=== PATIENT | male | born 1955 | race African-American/Black ===

== ENCOUNTER 2024-06-02 09:57 | Outpatient (CLI) | payer MEDICARE, SELFPAY ==
--- NOTE | ~2024-06-02 | MR_ITS ---
MRI of the right elbow Clinical history: Pain, biceps strain TECHNIQUE: Proton-density and proton-density fat-sat imaging was performed in the axial, coronal, and sagittal planes. FINDINGS: Ulnar collateral ligament is intact. Radial collateral ligament and the lateral ulnar colla teral ligament are intact. There is mild tendinosis at the common Bone marrow signals are unremarkable. No significant articular abnormality of the elbow. No joint eff usion. Extensor tendon origin. There is minimal tendinosis of the common flexor tendon origin. There is complete rupture of the distal biceps tendon, which is retracted approximately 4 cm from the radial tuberosity insertion. Brachialis and triceps tendons are intact. There is soft tissue fluid a bout the retracted biceps tendon. IMPRESSION: Complete rupture of the distal biceps tendon with 4 cm retraction, as detailed above. Mild tendinosis of the common extensor and common flexor tendon origins, as above. Reviewed, dictated and finalized at [facility]. IMPRESSION: Complete rupture of the distal biceps tendon with 4 cm retraction, as detailed above. Mild tendinosis of the common extensor and common flexor tendon origins, as abo ve.
== END 2024-06-02 09:58 | disposition home or self-care (01) ==
LOC: GOSHIMG 09:58
PROVIDERS: PCP Family Medicine Sports Medicine; Visit Provider Family Medicine Sports Medicine
DX: S46.211A Strain of muscle, fascia and tendon of other parts of biceps, right arm, initial encounter (principal); M67.823 Other specified disorders of tendon, right elbow; X58.XXXA Exposure to other specified factors, initial encounter
CPT/HCPCS: 73221

== ENCOUNTER 2024-06-02 09:59 | Outpatient (CLI) | payer MEDICARE, SELFPAY ==
--- NOTE | ~2024-06-02 | US_ITS ---
EXAMINATION: US aorta [facility] DATE: 06/02/2024 11:12 INDICATION: Abdominal aortic aneurysm screening TECHNIQUE: Grayscale, color Doppler, and pulsed Doppler images of the aorta and common iliac arteries were obtained. COMPARISON: None. FINDINGS: The proximal aorta measures 2.6 cm AP. The mid aorta measures 2.4 cm. The distal aorta measures 2.7 c m. The right common iliac artery measures 1.3 cm. The left common iliac artery measures 1.6 cm. IMPRESSION: 1. Normal caliber abdominal aorta. Reviewed, dictated and finalized at location A.
== END 2024-06-02 10:00 | disposition home or self-care (01) ==
LOC: GOSHIMG 10:00
PROVIDERS: PCP Family Medicine; Visit Provider Family Medicine
DX: Z13.6 Encounter for screening for cardiovascular disorders (principal)
CPT/HCPCS: 76706

== ENCOUNTER 2025-08-24 07:30 | Outpatient (CLI) | payer MEDICARE, SELFPAY ==
--- OUTSIDE RECORDS SUMMARY | 2017-01-10 03:00 | XMS_ITS | Continuity of Care Document ---
Author Organization [facility] Address [address] [place] [address] Phone Care Team Providers Care Ore Washer Name Role Phone Cristy Morton MD Unavailable Unavai lable Allergies, Adverse Reactions, Alerts Substance Reaction Status Criticality No Known Allergies Active No Inform ation Advance Directives Directive Yes / No Effective Date File Name No Information Encounters Encounter Description Practice Location Reason(s) For Visit Diagnoses Date Provider Providers Copied on Encounter [facility], [address], [place], [place], [id number], tel:[phone] [facility] No Information 7 Alejandro Muniz. [address] [place] [address], [id number] . tel:[phone] Referring Provider: Cristy Lucio, [address] [place] [address], [id number] . tel:[phone] [facility], [address], [place], [place], [id number], tel:[phone] [facility] Elevated BP without diagnosis of hypertensionBenign non-nodular prostatic hyperplasia with lower urinary tract symptomsRoutine medical examPolyp of colon, unspecified part of colon, unspecified typeCarpal tunnel syndrome of right wristPrediabetesPre diabetes 201 7 Alejandro Muniz. [address] [place] [address], [place], [place], [id number] . tel:[phone] Referring Provider: Cristy Lucio [address] [place] [address], [id number] . tel:[phone] Family History Family Member Type Diagnosis Age At Onset Sister Problem (finding) stroke Father Problem (finding) malignant neop lasm of lung (Cause Of ) 87 Brother Problem (finding) Cancer, skin Mother Problem (finding) glaucoma Mother Problem (finding) hypertension Mother Problem (finding) osteoarthritis Payers Payer name Insurance type Covered alliance party ID Authoriza tisurya(s) [employer] [id number] Social History Type Description Quantity Date Captured Comments Alcohol Use Details Unknown Caffeine Use Details Unknown Tobacco Use Status No Information Smoking Status No Information Sex Male Vital Signs Date / Time: Height Weight BMI Pulse Rate Blood Pressure Temperature Respiratory Rate Body Surface Area Head Circumference Head Circ. Percentile Wt./Damien. Percentile BMI percentile Pulse Ox Inhaled Ox 8:49 AM 150/74 mm[Hg] 8:58 AM 132/78 mm[Hg] Chief Complaint And Reason For Visit No Information Reason For Referral Reason For Referral No Information History Of Present Illness Encounter Date Complaint History Of Prese nt Illness No Information Functional Status Date Functional Assessmen t No Information Instructions Date Instruction Additional Infor mation No Information Assessments Type Assessment Date No Information Patient Care Teams Name Effective Dates (start - stop) Status Members No Information
--- NOTE | ~2025-08-24 | PE_ITS ---
EXAMINATION: PET_PETPSMAST_PT DATE: 08/24/2025 09:47 INDICATION: Malignant neoplasm of prostate. TECHNIQUE: 4.842 mCi of Ga-68 gozetotide was administered intravenously. Low dose computed tomography (CT) images were acquired from the base of the brain to the proximal thighs for attenuation correction and anatomic localization. Automated exposure control was employed. Dose-length product (DLP) was 1196 mGy- cm. Positron emission tomography (PET) images were acquired in the same distribution. COMPARISON: None FINDINGS: Head/neck: There are no pathologically enlarged lymph nodes. Chest: The lungs demonstrate mild atelectasis. No pleural effusion. The heart size is normal. No pericardial effusion. There are calcifications of the aortic valve. Abdomen/pelvis/proximal thighs: There is a 1.2 cm mass in right hepatic lobe without increased activity. The liver, gallbladder, spleen, and right adrenal gland are normal. There is thickening of left adrenal gland, likely benign. There are cysts in the kidneys measuring up to 5.9 cm on the left. The prostate is moderately enlarged with maximum SUV of 13.3. There is diffuse bladder wall thickening, likely secondary to chronic outlet obstruction. There is diverticulosis of the colon without evidence of diverticulitis. The appendix is normal. There are no dilated loops of bowel. There are no pathologically enlarged lymph nodes. There is an umbilical hernia containing fat. There is no ascites. There is no osseous malignancy. IMPRESSION: 1. Moderately enlarged prostate with increased activity, consistent with primary malignancy. No evidence of metastatic disease. 2. 1.2 cm mass in right hepatic lobe, which may be benign or less likely malignant. Abdomen MRI without and with contrast is recommended. Reviewed, dictated and finalized at location E. PIPELINE DISPATCHER IMPRESSION: 1. Moderately enlarged prostate with increased activity, consistent with primar y malignancy. No evidence of metastatic disease. 2. 1.2 cm mass in right hepatic lobe, which may be benign or less likely malign ant. Abdomen MRI without and with contrast is recommended.
--- OUTSIDE RECORDS SUMMARY | 2025-08-24 07:35 | XMS_ITS | Clinical Summary ---
Author Organization [facility] [address] Address [address] [place] [id number] Care Team Providers Care Staff Scientist Name Role Phone Tato Boyd MD Primary Care Provider [phone] Allergies Active Allergy Reactions Criticality Noted Date Comments Hay Fever And Allergy Relief Eye irritation,Other (See comments),Sneezing Low 08/10/1983 Medications multivitamin tabletIndications :Vitamin Deficiency Prevention Take 1 tablet by mouth Active saw palmetto 450 mg capsule 4 Active irbesartan (AVAPRO) 150 mg tabletIndications :Essential hypertension Take 1 tablet (150 mg total) by mouth nightly 90 tablet 3 5 11/30/19 26 Active tamsulosin (FLOMAX) 0.4 mg extended release capsule Take 1 capsule (0.4 mg total) by mouth daily 90 capsule 4 5 Active rosuvastatin (Crestor) 20 mg tablet Take 1 tablet (20 mg total) by mouth daily 30 tablet 3 5 Active Active Problems Problem Noted Date Diagnosed Date Establishing care with new doctor, encounter for 05/20/2024 Assessment & Plan (05/23/2024 1:15 PM CDT): A(n) initial Medicare Annual Wellness Visit has been performed today. Duane Jamison is not up to date on screening tests. He is in need of Prostate screening, AAA Screening, and Cholesterol screening. He is not up to date on needed preventative vaccinations; He is in need of Influenza. We discussed healthy lifestyle habits, educational material has been given. Medications reviewed, changes documented as per the medical record and discussed with patient along with risks vs benefits. Specific topics reviewed: drugs, ETOH, and tobacco, importance of regular dental care, importance of regular exercise, importance of varied diet, limit TV, media violence, minimize junk food, and seat belts. Return in 6 months Right elbow pain 05/17/2024 Systolic ejection murmur 04/15/2023 Other chest pain 04/15/2023 Essential hypertension 04/15/2023 Abnormal EKG 04/15/2023 Medicare annual wellness visit, subsequent 01/09 Chronic allergic rhinitis 01/09/2023 Mixed hyperlipidemia 01/09/2023 Positive colorectal cancer screening using Colog uard test 06/26/2022 Overview (06/26/2022): Added automatically from request for surgery [id number] Encounters Date Type Department Care Team Description 06/02/2025 8:40 AM CDT Lab [address] [address] Prostate cancer screening; Mixed hyperlipidemia; Essential hypertension 06/02/2025 8:00 AM CDT Office Visit [facility] Primary Care at [address] [phone] Tato Boyd MD Encounter for subsequent annual wellness visit (AWV) in Medicare patient (Primary Dx); Screening for abdominal aortic aneurysm; Mixed hyperlipidemia; Essential hypertension; Prostate cancer screening; Screening for AAA (abdominal aortic aneurysm) 06/02/2025 Results Follow-Up [facility] Primary Care at [address] [id number] Tato Boyd MD PSA screen, Lipid panel, Comprehensive metabolic panel, Additional followed-up results: 3 from Last 3 Months Immunizations Immunization Administration Dates Next Due Influenza, Trivalent, Adjuva nted, Intramuscular 06/28/2024 Influenza, Unspecified 09/29/2021(Deferr ed: Patient Refused),09/29/2020(Deferred: Patient Refused) Pneumococcal Conjugate Pcv20 01/09/2023 Sars-cov-2 Covid-19 Mrna, Bi valent, Original/omicron Ba.1 06/29/2023 Tdap 10/31/2020 ZOSTER Recombinant 06/22/2023,01/11/2023 Surgical History Surgery Date Site/Laterality Comments COLONOSCOPY 07/23/2022 SHOULDER SURGERY Left CYST REMOVAL from head COSMETIC SURGERY Pilar cyst removed from scalp. WISDOM TOOTH EXTRACTION Medical History Medical History Date Comments Hypertension 2000 Seasonal allergies Family History Medical History Relation Name Comments Prostate cancer Brother Asthma Father Macario Jamison Lung cancer Father Macario Jamison small cell Prostate cancer Father Macario Jamison metastatic t o lungs Prostate cancer Maternal Grandfather No Known Problems Maternal Grandmother Arthritis Mother Masha Jamison Hypertension Mother Masha Jamison Uterine cancer Mother Masha Jamison Arthritis Other Cancer Other No Known Problems Paternal Grandfather No Known Problems Paternal Grandmother Cerebral aneurysm Sister 1 Hypertension Sister 2 Hypertension Sister 3 No Known Problems Sister 4 Relation Name Status Comments Brother Alive Father Macario Jamison Maternal Grandfather Maternal Grandmother Mother Masha Jamison Other Paternal Grandfather Paternal Grandmother Sister 1 Alive Sister 2 Alive Sister 3 Alive Sister 4 Alive Social History Tobacco Use Types Packs/Day Years Used Date Smoking Tobacco: Former Cigarettes 0 09/29/2017 - 09/29/2021 Cigars 2017 Smokeless Tobacco: Never Tobacco Cessation:Counseling Given: Not Answered Comments:Smoked 1 or 2 cigars per year when I was smoking. Alcohol Use Standard Drinks/Week Comments Yes 0 (1 standard drink = 0.6 oz pur e alcohol) PHQ-2 Answer Date Recorded PHQ-2 Total Score (If total score is 3 or more points, staff should administer the PHQ-9) 0 05/29/2025 AUDIT-C Answer Date Recorded Q1: How often do you have a drink containing alc ohol? Monthly or less 06/02/2025 Q2: How many drinks containi ng alcohol do you have on a typical day when you are drinking? 1 or 2 06/02/2025 Q3: How often do you have si x or more drinks on one occasion? 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 file Not on file Not on file Last Filed Vital Signs Vital Sign Reading Time Taken Comments Blood Pressure 124/76 06/02/2025 8:14 AM CDT Pulse 65 06/02/2025 8:14 AM CDT Temperature 36.1 C (96.9 F) 06/02/2025 8:14 AM CDT Respiratory Rate 16 06/02/2025 8:14 AM CDT Oxygen Saturation 98% 06/02/2025 8:14 AM CDT Inhaled Oxygen Concentration - - Weight 88.9 kg (196 lb) 06/02/2025 8:14 AM CDT Height 177.8 cm (5' 10) 06/02/2025 8:14 AM CDT Body Mass Index 28.12 06/02/2025 8:14 AM CDT Plan of Treatment Health Maintenance Due Date Last Done Comments Influenza Vaccine (#1) 2025 06/28/2024 Covid-19 Vaccine ( season) 2026 06/28/2024, 06/29/2023, 06/29/2023, Additional history exists Postponed from 05/30/2025 (Patient declined, but will receive in the future) Depression Screening 06/02/2026 06/02/2025, 11/29/2024, 05/20/2024, Additional history exists Fall Risk Assessment 06/02/2026 06/02/2025, 05/20/2024, 01/09/2023, Additional history exists Well Visit 65+ 06/02/2026 06/02/2025, 04/30, 01/09/2023 Prostate Cancer Screening-PSA 06/02/2027 06/02/2025, 01/30/2024, 01/09/2023, Additional history exists DTaP/Tdap/Td Vaccine (2 - Td or Tdap) 10/31/2030 10/31/2020 Colon Cancer Screening-Colonoscopy 07/23/2032 07/23/2022 Pneumococcal vaccine 65+ Completed 01/09/2023 Zoster Vaccine Completed 06/22/2023, 01/11/2023 Hepatitis B Screening Completed 05/20/2024 Hepatitis C Screening Completed 05/20/2024 Abdominal Aortic Aneurysm (AAA) Screen Completed 06/02/2024 Procedures Procedure Name Priority Date/Time Associated Diagnosis Comments EGFR Routine 06/02/2025 8:51 AM CDT Essential hypertension DIFFERENTIAL AUTO Routine 06/02/2025 8:5 1 AM CDT Essential hypertension CBC WITH AUTO DIFFERENTIAL Routine 06/02/2025 8:51 AM CDT Essential hypertension COMPREHENSIVE METABOLIC PANEL Routine 06/02/2025 8:51 AM CDT Essential hypertension LIPID PANEL Routine 06/02/2025 8:51 AM CDT Mixed hyperlipidemia PSA SCREEN Routine 06/02/2025 8:51 AM CDT Prostate cancer screening HEPATITIS C ANTIBODY Routine 05/20/2024 8:42 AM CDT Need for hepatitis C screening test COLONOSCOPY 07/23/2022 9:25 AM CDT from Last 3 Months or Most Recently Relevant to Health Maintenance Results * eGFR (06/02/2025 8:51 AM CDT) eGFR 64 >=60 mL/min/1. 73 m2 Comment: Interpretive Data Reference Interval Normal >/= 90 mL/min/1.73m2 Mildly decreased* 60 - 89 mL/min/1.73m2 Mildly to moderately decreased 45 - 59 mL/min/1.73m2 Moderately to severely decreased 30 - 44 mL/min/1.73m2 Severely decreased 15 - 29 mL/min/1.73m2 Kidney Failure < 15 mL/min/1.73m2 *Relative to young adult level Estimated glomerular filtration rate is determined by the 2020 CKD-EPI equation recommended by the National Kidney Foundation (A Unifying Approach to GFR Estimation: Recommendations of the NKF-ASK Task Force on Reassessing the Inclusion of Race in Diagnosing Kidney Disease, JASN 2020). The CKD-EPI equation should not be used for patients with unstable renal function and has not been validated in children and those over 70. Current interpretive data was last reviewed 2021. Blood 06/02/2025 8:51 AM CDT 06/02/2025 11:07 AM CDT us Tato Boyd MD LAB BLOOD ORDERABLES Final Result [facility] [address] [facility] Department [place] [address] * Differential, auto (06/02/2025 8:51 AM CDT) Pathologist [facility] Neutrophil abs 4.44 1.50 - 6.50 K/cumm Imm gran abs 0.01 0.00 - 0.10 K/cumm [facility] Lymphocyte abs 1.30 0.80 - 3.30 K/cumm [facility] Monocyte abs 0.41 0.20 - 0.80 K/cumm [facility] Eosinophil abs 0.25 0.00 - 0.50 K/cumm [facility] Basophil abs 0.03 0.00 - 0.10 K/cumm [facility] Neutrophil pct 68.8 % [facility] Comment: Interpretive Data Percent cell count reference ranges are not reported, since discordance with absolute values may lead to misinterpretation of CBC data. Current Interpretive Data was last revised on 2018. Imm gran pct 0.2 % [facility] Comment: Interpretive Data Percent cell count reference ranges are not reported, since discordance with absolute values may lead to misinterpretation of CBC data. Current Interpretive Data was last revised on 2018. Lymphocyte pct 20.2 % [facility] Comment: Interpretive Data Percent cell count reference ranges are not reported, since discordance with absolute values may lead to misinterpretation of CBC data. Current Interpretive Data was last revised on 2018. Monocyte pct 6.4 % [facility] Comment: Interpretive Data Percent cell count reference ranges are not reported, since discordance with absolute values may lead to misinterpretation of CBC data. Current Interpretive Data was last revised on 2018. Eosinophil pct 3.9 % [facility] Comment: Interpretive Data Percent cell count reference ranges are not reported, since discordance with absolute values may lead to misinterpretation of CBC data. Current Interpretive Data was last revised on 2018. Basophil pct 0.5 % [facility] Comment: Interpretive Data Percent cell count reference ranges are not reported, since discordance with absolute values may lead to misinterpretation of CBC data. Current Interpretive Data was last revised on 2018. Blood 06/02/2025 8:51 AM CDT 06/02/2025 11:07 AM CDT Tato Boyd MD LAB BLOOD ORDERABLES Final Result Performing Organization Address [facility] de Phone Number [address] [address] * (ABNORMAL) PSA screen (06/02/2025 8:51 AM CDT) PSA-Total 9.54(H) <=5.40 ng/mL Comment: Interpretive Data AGE SEX REFERENCE INTERVAL 0 minutes-150 years Female None 0 minutes-49 years Male None 50-59 years Male 0-3.90 60-69 years Male 0-5.40 70-79 years Male 0-6.20 80-150 years Male 0-6.20 The Ramez PSA Total assay procedure was used. Results from different manufacturers or methods may not be comparable. Serial testing should be performed using the same method. Current interpretive data last revised 22. Blood 06/02/2025 8:51 AM CDT 06/02/2025 11:07 AM CDT Tato Boyd MD LAB BLOOD ORDERABLES Final Result Performing Organization Address [facility] de Phone Number [address] [address] * (ABNORMAL) CBC with auto differential (06/02/2025 8:51 AM CDT) WBC 6.44 3.80 - 9.90 K/cumm Hgb 14.0 13.0 - 17.5 g/dL [facility] Hct 44.4 38.9 - 50.3 % [facility] Plt 254 150 - 400 K/cumm [facility] MPV 10.5 9.1 - 12.3 fL [facility] RBC 5.01 4.30 - 5.80 M/cumm [facility] MCV 88.6 81.3 - 96.4 fL [facility] MCH 27.9 27.1 - 33.3 pg [facility] MCHC 31.5(L) 32.3 - 35.7 g/dL [facility] RDW CV 13.8 11.1 - 14.9 % [facility] RDW SD 44.0 35.7 - 48.1 fL [facility] NRBC abs 0.00 0.00 - 0.01 K/cumm [facility] Blood 06/02/2025 8:51 AM CDT 06/02/2025 11:07 AM CDT us Tato Boyd MD LAB BLOOD ORDERABLES Final Result [facility] [address] [facility] Department of Laboratories [place], [place] [id number] * (ABNORMAL) Lipid panel (06/02/2025 8:51 AM CDT) Cholesterol 230(H) 30 - 199 mg/dL Comment: Interpretive Data Ages < or = 19 years Acceptable: <170 mg/dL Borderline high: 170-199 mg/dL High: >or= 200 mg/dL Ages > or = 20 years Desirable: <200 mg/dL Borderline high: 200-239 mg/dL High: >or= 240 mg/dL Literature References: 1. Expert Panel on Integrated Guidelines for Cardiovascular Health and Risk Reduction in Children and Adolescents. Pediatrics 2011;128:S213 2. NCEP Expert Panel. Circulation 2004;110:227 Current Interpretive Data was last revised on 2018. Triglycerides 75 <=149 mg/dL [facility] Comment: Interpretive Data Ages < or = 9 years Acceptable: <75 mg/dL Borderline high: 75-99 mg/dL High: >or= 100 mg/dL Ages 10 to 20 years Acceptable: <90 mg/dL Borderline high: 90-129 mg/dL High: >or= 130 mg/dL Ages > or = 20 years Desirable: <150 mg/dL Borderline high: 150-199 mg/dL High: 200-499 mg/dL Very high: >or= 499 mg/dL Literature References: 1. Expert Panel on Integrated Guidelines for Cardiovascular Health and Risk Reduction in Children and Adolescents. Pediatrics 2011;128:S213 2. NCEP Expert Panel. Circulation 2004;110:227 Current Interpretive Data was last revised on 2018. HDL 54 >=40 mg/dL [facility] Comment: Interpretive Data Ages < or = 19 years Acceptable: >45 mg/dL Borderline low: 40-45 mg/dL Low: <40 mg/dL Ages > or = 20 years Desirable: >or= 60 mg/dL Low: <40 mg/dL Literature References: 1. Expert Panel on Integrated Guidelines for Cardiovascular Health and Risk Reduction in Children and Adolescents. Pediatrics 2011;128:S213 2. NCEP Expert Panel. Circulation 2004;110:227 Current Interpretive Data was last revised on 2018. LDL, calculated 163(H) <=129 mg/dL [facility] Comment: Interpretive Data Ages < or = 19 years Acceptable: <110 mg/dL Borderline high: 110-129 mg/dL High: >or= 130 mg/dL Ages > or = 20 years Optimal: <100 mg/dL Near optimal: 100-129 mg/dL Borderline high: 130-159 mg/dL High: >160 mg/dL Calculated using the Eldon LDL-C estimating equation. This equation was implemented on 2024. Prior to this date LDL-C was estimated using the Friedewald equation. Literature References: 1. Expert Panel on Integrated Guidelines for Cardiovascular Health and Risk Reduction in Children and Adolescents. Pediatrics 2011;128:S213 2. NCEP Expert Panel. Circulation 2004;110:227 3. Eldon Meyer et al. ALONDRA Cardiol. 2020 January 27;5(5):540-548. doi: 10.1001/jamacardio.2020.0013 Current Interpretive Data was last revised on 2024. Non-HDL Cholesterol 176 mg/dL [facility] Comment: Interpretive Data Ages < or = 19 years Acceptable: <120 mg/dL Borderline high: 120-144 mg/dL High: >145 mg/dL Ages > or = 20 years When triglycerides are >200 mg/dL, Non-HDL cholesterol is a secondary target of therapy with treatment goals that are 30 mg/dL greater than the LDL cholesterol target. Literature References: 1. Expert Panel on Integrated Guidelines for Cardiovascular Health and Risk Reduction in Children and Adolescents. Pediatrics 2011;128:S213 2. NCEP Expert Panel. Circulation 2004;110:227 Current Interpretive Data was last revised on 2018. Chol/HDL ratio 4 [facility] Blood 06/02/2025 8:51 AM CDT 06/02/2025 11:07 AM CDT Tato Boyd MD LAB BLOOD ORDERABLES Final Result [facility] [address] [facility] Department [place] [address] * Comprehensive metabolic panel (06/02/2025 8:51 AM CDT) Sodium 142 135 - 145 mmol/L Potassium, pl 4.1 3.3 - 4.9 mmol/L [facility] Chloride 106 97 - 110 mmol/L [facility] CO2 26 22 - 32 mmol/L [facility] Anion gap 10 2 - 15 mmol/L [facility] BUN 15 6 - 25 mg/dL [facility] Creatinine 1.23 0.80 - 1.30 mg/dL [facility] Glucose 97 70 - 199 mg/dL [facility] Comment: Interpretive Data Fasting glucose >/= 126 mg/dl is diagnostic for diabetes. Fasting is defined as no caloric intake for at least 8 hours. Fasting glucose between 100 mg/dl to 125 mg/dl is diagnostic of prediabetes. In a patient with classic symptoms of hyperglycemia or hyperglycemic crisis, a random glucose >/= 200 mg/dl is diagnostic for diabetes. In the absence of unequivocal hyperglycemia, results should be confirmed by repeat testing. The classification and Diagnosis of Diabetes Diabetes Care 2021; 46: S19-S40. Current interpretive data was last revised 2022. Calcium 9.6 8.5 - 10.3 mg/dL [facility] Bilirubin, total 0.5 0.1 - 1.2 mg/dL [facility] Protein, pl 7.7 6.5 - 8.5 g/dL [facility] Albumin 4.6 3.5 - 5.0 g/dL [facility] Alk phos 50 40 - 130 Units/L [facility] ALT 30 7 - 55 Units/L [facility] AST 34 10 - 50 Units/L [facility] Blood 06/02/2025 8:51 AM CDT 06/02/2025 11:07 AM CDT Tato Boyd MD LAB BLOOD ORDERABLES Final Result Performing Organization Address [facility] Co de Phone Number [facility] [address] [facility] Department [place] [address] * Hepatitis C antibody Blood (05/20/2024 8:42 AM CDT) Hep C Ab Nonreactive Nonreactive Comment: Interpretive Data Nonreactive: Antibodies to HCV not detected. Does NOT exclude the possibility of recent exposure to HCV. Equivocal: Equivocal for HCV antibodies. Supplemental molecular testing will be automatically performed to determine infection status in accordance with current CDC screening recommendations. Reactive: Positive for HCV antibodies. This may represent current or past HCV infection. Supplemental molecular testing will be automatically performed to determine current infection status in accordance with current CDC screening recommendations. Interpretive data was last revised on 2019. Blood 05/20/2024 8:42 AM CDT 05/20/2024 2:14 PM CDT Tato Boyd MD LAB MICROBIOLOGY - GENERAL ORDERABLES Final Result Performing Organization Address [facility] Co de Phone Number [facility] [address] [facility] Department [place] [address] * COLONOSCOPY (07/23/2022 9:25 AM CDT) Anatomical Region Laterality Modality Other Narrative Procedure Note Benjy Witt MD - 07/23/2022 9:25 AM CDT - [facility] Patient Name: Duane Jamison Procedure Date: 07/23/2022 9:25 AM Date of : 1955 Admit Type: Outpatient Age: 67 Gender: Male Note Status: Finalized Attending MD: Benjy Witt M.D. Procedure Date: 07/23/2022 Procedure: Colonoscopy Indications: Screening for colorectal malignant neoplasm, Last colonoscopy: date unknown (unable to locate last colonoscopy report) Providers: Benjy Witt M.D., John Pina CRNA (Anesthesia Staff), Chari Mello RN Referring MD: Jere Delgado M.D. Medicines: Monitored Anesthesia Care Complications: No immediate complications. Estimated Blood Loss: Estimated blood loss was minimal. Procedure: Pre-Anesthesia Assessment: - Prior to the procedure, a History and Physicalwas performed, and patient medications and allergieswere reviewed. The patient is competent. The risks and benefits of the procedure and the sedation optionsand risks were discussed with the patient. Allquestions were answered and informed consent was obtained. Patient identification and proposed procedure were verified by the physician, the nurse and the firer boiler in the procedure room. Mental Status Examination: alert and oriented. AirwayExamination: normal oropharyngeal airway and neck mobility. Respiratory Examination: clear to auscultation. CV Examination: normal. Prophylactic Antibiotics: The patient does not require prophylactic antibiotics. Prior Anticoagulants: The patient has taken no anticoagulant or antiplatelet agents. ASA Grade Assessment: III - A patient with severe systemic disease. After reviewing the risks and benefits,the patient was deemed in satisfactory condition to undergo the procedure. The anesthesia plan was touse monitored anesthesia care (MAC). Immediately priorto administration of medications, the patient was re-assessed for adequacy to receive sedatives. The heart rate, respiratory rate, oxygen saturations, blood pressure, adequacy of pulmonary ventilation,and response to care were monitored throughout the procedure. The physical status of the patient was re-assessed after the procedure. - The risks and benefits of the procedure and the sedation options and risks were discussed with the patient. All questions were answered and informed consent was obtained. After I obtained informed consent, the scope was passed under direct vision. Throughout theprocedure, the patient's blood pressure, pulse, and oxygen saturations were monitored continuously. The scopewas passed under direct vision. The Colonoscope was introduced through the anus and advanced to the the cecum, identified by appendiceal orifice andileocecal valve. The colonoscopy was performed without difficulty. The patient tolerated the procedurewell. The quality of the bowel preparation was adequate.The bowel preparation used was Clenpiq via split dose instruction. Findings: A 10 mm polyp was found in the ascending colon. The polyp was pedunculated. The polyp was removed with a hot snare. Resection and retrieval were complete. Area was tattooed with an injection of 2 mLof Paulette ink. Estimated blood loss was minimal. Two sessile polyps were found in the hepatic flexure. The polyps were3 to 4 mm in size. These polyps were removed with a jumbo cold forceps. Resection and retrieval were complete. Estimated blood loss wasminimal. A 4 mm polyp was found in the transverse colon. The polyp wassessile. The polyp was removed with a jumbo cold forceps. Resection andretrieval were complete. Estimated blood loss was minimal. An 8 mm polyp was found in the descending colon. The polyp wassessile. The polyp was removed with a hot snare. Resection and retrieval were complete. Estimated blood loss was minimal. A 3 mm polyp was found in the recto-sigmoid colon. The polyp was sessile. The polyp was removed with a jumbo cold forceps. Resectionand retrieval were complete. Estimated blood loss was minimal. The exam was otherwise without abnormality on direct and retroflexion views. Impression: - One 10 mm polyp in the ascending colon, removedwith a hot snare. Resected and retrieved. Tattooed. - Two 3 to 4 mm polyps at the hepatic flexure,removed with a jumbo cold forceps. Resected andretrieved. - One 4 mm polyp in the transverse colon, removedwith a jumbo cold forceps. Resected and retrieved. - One 8 mm polyp in the descending colon, removedwith a hot snare. Resected and retrieved. - One 3 mm polyp at the recto-sigmoid colon,removed with a jumbo cold forceps. Resected andretrieved. - The examination was otherwise normal on directand retroflexion views. Recommendation: - Await pathology results. - Repeat colonoscopy in 3 years for surveillancebased on pathology results. Procedure Code(s): --- Professional --- 59387, Colonoscopy, flexible; with removal of tumor(s), polyp(s), or other lesion(s) by snare technique 24713, Colonoscopy, flexible; with directedsubmucosal injection(s), any substance 32736, 59, Colonoscopy, flexible; with biopsy,single or multiple Diagnosis Code(s): --- Professional --- Z12.11, Encounter for screening for malignantneoplasm of colon D12.2, Benign neoplasm of ascending colon D12.3, Benign neoplasm of transverse colon (hepatic flexure or splenic flexure) D12.4, Benign neoplasm of descending colon D12.7, Benign neoplasm of rectosigmoid junction CPT copyright 2020 [employer]. All rights reserved. The codes documented in this report are preliminary and upon orthopedic coder reviewmay be revised to meet current compliance requirements. Electronically signed by Benjy Witt M.D. Benjy Witt M.D. 07/23/2022 10:08:32 AM Number of Addenda: 0 Note Initiated On: 07/23/2022 9:25 AM Benjy Witt MD ENDOSCOPY PROCEDURES Fi nal Result from Last 3 Months or Most Recently Relevant to Health Maintenance Insurance [facility] Address: [address] [address] [place] [address] [facility] Address: [address] [address] [place] [address] Care Teams Staff Scientist Relationship Specialty Start Date End Date Tato Boyd MD [address] [place] [address] PCP - General Family Medicine 05/20/24
== END 2025-08-24 07:31 | disposition home or self-care (01) ==
PROVIDERS: PCP Family Medicine; Visit Provider Urology
DX: R16.0 Hepatomegaly, not elsewhere classified (principal); N40.0 Benign prostatic hyperplasia without lower urinary tract symptoms; C61 Malignant neoplasm of prostate
CPT/HCPCS: 78815; A9596